=== PATIENT | female | born 1980 | race Caucasian/White ===

== ENCOUNTER 2017-06-03 16:51 | Emergency (ER) | payer MEDICAID ==
[2017-06-03 19:51] VITALS: BP 118/73
== END 2017-06-03 19:51 | disposition home or self-care (01) ==
LOC: ED 16:51
DX: J02.9 Acute pharyngitis, unspecified (principal)
CPT/HCPCS: J0558; J1100

== ENCOUNTER 2017-12-31 07:58 | Emergency (ER) | payer MEDICAID ==
[~2017-12-31] VITALS: Ht 167.6 cm; Wt 63.5 kg
[2017-12-31 08:07] VITALS: Ht 167.6 cm; Wt 63.5 kg
[2017-12-31 09:20] VITALS: BP 128/73
== END 2017-12-31 09:20 | disposition home or self-care (01) ==
LOC: ED 07:58
DX: M54.5 Low back pain (principal)
CPT/HCPCS: J1885

== ENCOUNTER 2018-02-16 17:48 | Emergency (ER) | payer MEDICAID ==
[~2018-02-16] VITALS: Ht 170.2 cm; Wt 62.1 kg
[2018-02-16 21:05] LABS: BASOPHIL % 0.3 % (0-2); PLATELET COUNT 268 x10^3mcL (130-400); RED CELL DISTRIBUTION WIDTH 12.8 % (11.5-14.5)
[2018-02-16 21:12] LABS: CALCIUM 9.2 mg/dL (8.5-10.1); CHLORIDE SERUM 102 mmol/L (98-107); CREATININE SERUM 0.6 mg/dL (0.6-1.0); GFR1 > 60 mL/min; GLUCOSE SERUM 86 mg/dL (74-106); POTASSIUM SERUM 4.1 mmol/L (3.5-5.1); SODIUM SERUM 138 mmol/L (136-145)
[2018-02-16 21:20] LABS: ALKALINE PHOSPHATASE 50 U/L (46-116); ALT/SGPT 15 U/L (14-59); AMYLASE 33 U/L (25-115); AST/SGOT 14 U/L (15-37); BILIRUBIN TOTAL 0.37 mg/dL (0.20-1.00); LIPASE 125 IU/L (73-393); TOTAL PROTEIN, SERUM 7.2 g/dL (6.4-8.2)
[2018-02-17 00:19] VITALS: BP 106/70
== END 2018-02-17 00:19 | disposition home or self-care (01) ==
LOC: ED 17:48
PROVIDERS: Emergency Medicine
DX: R11.2 Nausea with vomiting, unspecified (principal); R19.7 Diarrhea, unspecified; R10.30 Lower abdominal pain, unspecified
CPT/HCPCS: 36415; 87046; 87046-59; Q0162

== ENCOUNTER 2019-03-28 10:30 | Emergency (ER) | payer MEDICAID ==
[~2019-03-28] VITALS: Ht 172.7 cm; Wt 64.4 kg
[2019-03-28 10:32] VITALS: BP 120/42; Ht 172.7 cm; Wt 64.4 kg
== END 2019-03-28 12:32 | disposition home or self-care (01) ==
LOC: ED 10:30
DX: M79.675 Pain in left toe(s) (principal); R26.2 Difficulty in walking, not elsewhere classified

== ENCOUNTER 2019-06-28 20:42 | Emergency (ER) | payer MEDICAID ==
[~2019-06-28] VITALS: Ht 167.6 cm; Wt 64.2 kg
[2019-06-28 21:27] VITALS: BP 109/55; Ht 167.6 cm; Wt 64.2 kg
== END 2019-06-28 23:02 | disposition home or self-care (01) ==
LOC: ED 20:42
DX: B34.9 Viral infection, unspecified (principal)

== ENCOUNTER 2019-08-13 20:37 | Emergency (ER) | payer MEDICAID ==
[~2019-08-13] VITALS: Ht 167.6 cm; Wt 64.0 kg
[2019-08-13 21:10] VITALS: Ht 167.6 cm; Wt 64.0 kg
[2019-08-14 01:09] VITALS: BP 119/51
== END 2019-08-14 01:09 | disposition home or self-care (01) ==
LOC: ED 20:37
DX: N39.0 Urinary tract infection, site not specified (principal)
CPT/HCPCS: J1885

== ENCOUNTER 2019-10-06 12:38 | Emergency (ER) | payer MEDICAID ==
[~2019-10-06] VITALS: Ht 167.6 cm; Wt 63.0 kg
[2019-10-06 13:01] VITALS: Ht 167.6 cm; Wt 63.0 kg
[2019-10-06 16:20] VITALS: BP 114/57
== END 2019-10-06 16:20 | disposition home or self-care (01) ==
LOC: ED 12:38
DX: S66.911A Strain of unspecified muscle, fascia and tendon at wrist and hand level, right hand, initial encounter (principal); X58.XXXA Exposure to other specified factors, initial encounter; Y93.89 Activity, other specified; Y92.89 Other specified places as the place of occurrence of the external cause; Y99.8 Other external cause status